=== PATIENT | male | born 1985 | race Hispanic/Latino ===

== ENCOUNTER 2024-10-17 20:32 | Emergency (ER) | payer BC, SELFPAY ==
[2024-10-17 20:46] VITALS: BP 194/113
[2024-10-17 20:48] VITALS: BP 176/101
[2024-10-17 21:06] LABS: % Basophils 0.8 % (0-2); % Eosinophils 3.6 % (0-6); % Immature Granulocytes 0.2 % (0-0.5); % Lymphocytes 38.2 % (20.5-51.1); % Monocytes 6.7 % (1.7-9.3); % Neutrophils 50.5 % (42.2-75.2); Absolute Basophils 0.1 10^3/uL (0-0.2); Absolute Eosinophils 0.3 10^3/uL (0-0.7); Absolute Lymphocytes 3.2 10^3/uL (1.2-3.4); Absolute Monocytes 0.6 10^3/uL (0.1-0.6); Absolute Neutrophils 4.3 10^3/uL (1.4-6.5); Hematocrit 41.3 % (39.0-52.0); Mean Corp Hgb Conc. 33.9 g/dL (33.0-37.0); Mean Corpuscular Hgb 29.7 pg (27.0-31.0); Mean Corpuscular Volume 87.5 fL (80.0-94.0); Mean Platelet Volume 9.2 fL (7.4-10.4); Nucleated Red Blood Cells % 0 % (-); Platelet Count 294 10^3/uL (130-400); Red Blood Cell Count 4.72 10^6/uL (4.70-6.10); Red Cell Dist. Width 13.3 % (11.5-14.5); White Blood Cell Count 8.5 10^3/uL (4.8-10.8)
[2024-10-17 21:23] LABS: ALT (SGPT) 30 U/L (0-50); AST (SGOT) 32 U/L (17-59); Albumin 4.7 g/dl (3.5-5.0); Alkaline Phosphatase 63 U/L (38-126); Blood Urea Nitrogen 13 mg/dl (9-20); Calcium 9.7 mg/dl (8.4-10.2); Carbon Dioxide 25 mmol/L (22-30); Chloride 105 mmol/L (98-107); Glucose 114 mg/dl (70-99); Potassium 4.6 mmol/L (3.5-5.1); Sodium 139 mmol/L (135-145); Total Bilirubin 0.8 mg/dl (0.2-1.3); eGFR > 60.00
[2024-10-17 21:29] LABS: Troponin I < 0.012 ng/ml
[2024-10-17 22:49] VITALS: BP 172/97
[2024-10-17 23:00] VITALS: BP 165/86
--- NOTE | 2024-10-17 23:19 | ED.GENMED ---
History of Present Illness
General
Chief Complaint: Numbness
Source: patient
Exam Limitations: none
Time Seen by Provider: 10/17/24 23:00
Nursing documentation reviewed up to this point in time: agreed with
History of Present Illness
History of Present Illness:
This is a 39-year-old gentleman who has no reported past medical history but admits to neglecting his health care for quite some time.
Over the past several days to perhaps a week he complains of some left-sided paresthesias, primarily left hand, palmar surface involving his thumb to long digit. He also has had some intermittent mild paresthesia left lateral thigh. He has had no
weakness, no clumsiness, no headache. He has noticed intermittent brief dizziness more so when walking to work which he does so on a daily basis. Dizziness described as a sense of mild lightheadedness,, perhaps brief sense of movement but no
difficulty with ambulation, no falls, not associated with nausea nor palpitations, no chest pain nor shortness of breath. He admits to mild intermittent nasal congestion, occasional sneezing, rare dry cough and believes these are all related to
seasonal allergies.
He has had intermittent pulsatile tinnitus in his left ear over the past week.
He does admit to moderate stress over the past 2 to 3 weeks, moderate family stress. He resides at home with his fianc�e.
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
He denies alcohol or drug use, denies smoking.
He takes no medicines on a daily basis.
Family history notable for his father having a stroke at age 46.
Patient currently does not have a PCP. He does have healthcare coverage.
Past History
Past History
ED Past Medical History: None
ED Past Surgical History: None
Social History
Tobacco: Non-smoker
Alcohol: None
Drug: None
Personal: Single (Resides with his fianc�e)
Living: with family (Resides with his fianc�e)
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
Family History
Family History: Hypertension and Other (Father had a stroke at age 46)
Phy Exam
Physical Exam
Physical Exam:
GENERAL: 39-year-old overweight gentleman appears his stated age, bright and alert, easily communicative, appears very mildly anxious/apprehensive but otherwise in no acute distress. Noted to be moderately hypertensive. Afebrile. Oral temperature
98.6 �F upon recheck.
EYE: pupils equal and reactive. Extraocular muscles intact. Minimal left lateral gaze nystagmus. Test of skew is negative. Negative head impulse test. Anicteric
NECK: Supple, nontender, no meningismus, no significant adenopathy.
ENT: posterior pharynx is clear, oral mucosa is moist. TM clear b/l, nares have moderately boggy pale blue turbinates without rhinorrhea.
CARDIAC: Regular rate and rhythm. no murmur.
LUNGS: Clear breath sounds bilaterally, no acute respiratory distress, no wheezes/rales/rhonchi
ABDOMEN: Soft, nondistended, without focal tenderness, normoactive BS.
NEUROLOGICAL: Alert and oriented x3, cranial nerves II through XII grossly intact, motor strength is 5/5 bilaterally. Gross sensation is intact bilaterally. No focal neuro deficits. Gait is gonzalez and steady. NIH stroke scale of 0.
SKIN: Warm and dry, normal color, skin intact. Rosacea type facial rash.
MUSCULOSKELETAL: No C/C/E. peripheral pulses are full and equal b/l. No palpable tenderness.
PSYCH: Normal and appropriate interaction.
Course
Orders/Labs/Results
Orders:
Orders
10/17/24 20:49
Electrocardiogram (*1) Urgent
Reason for Study: Chest Pain
EKG- Treatment ONCE
10/17/24 21:00
Complete Blood Count/With Diff Urgent
Comprehensive Metabolic Panel Urgent
TSH Reflex To Free T4 Urgent
Comment: ADD ON
Troponin I Urgent
10/17/24 23:14
CT Head W/o Iv Contrast Urgent
Comment:
Reason For Exam: left sided paresthesia x several days; HTN
10/17/24 23:15
CR Chest - 2 Views Urgent
Comment:
Reason For Exam: HTN, occas cough, paresthesia L side
10/17/24 23:16
Metoprolol [Lopressor] 5 mg IV NOW STA
10/17/24 23:19
Add On- LAB Urgent
Tests Added?: TSH w reflex to free T-4
Abnormal Lab Results
10/17/24
21:00
Glucose 114 H mg/dl
(70-99)
10/17/24 21:00
10/17/24 21:00
Vital Signs
Initial and Last Documented VS:
Initial Vital Signs
Temp Pulse Resp BP Pulse Ox
99.3 F 93 16 194/113 100
10/17/24 20:46 10/17/24 20:46 10/17/24 20:46 10/17/24 20:46 10/17/24 20:46
Last Documented Vital Signs
Temp Pulse Resp BP Pulse Ox
99.3 F 89 14 143/89 98
10/17/24 20:46 10/18/24 00:15 10/18/24 00:15 10/18/24 00:00 10/18/24 00:15
MDM/Problems Addressed
Differential Diagnosis Includes:
Concern for peripheral neuropathy such as carpal tunnel syndrome, meralgia paresthetica, other consideration is CVA.
Concern for benign paroxysmal positional vertigo versus central vertigo.
Currently asymptomatic. No focal neurodeficits.
Mild allergic rhinitis noted on exam which may be aggravating symptoms as well.
Patient is noted to be significantly hypertensive with initial blood pressure 194/113. Has currently improved to 165/86.
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
EKG is unremarkable, no evidence of ACS, no evidence of LVH nor strain pattern on EKG.
Labs are unremarkable, normal renal function, normal CBC, negative troponin. Will add TSH, concern for potential thyroid disorder.
Will check CT of the head as well as chest x-ray.
Given IV dose of metoprolol for hypertension. Beta-kameron may also aid in anxiety symptoms.
I highly suspect patient has hypertension, perhaps longstanding hypertension.
*Radiology
Radiology exam reviewed: preliminary read by ED provider (Chest x-ray is unremarkable. Normal heart size.) and radiology read reviewed (CT of the head is unremarkable.)
*Pulse Oximetry
Patient hypoxic: no
*EKG
Interpreted by ED Provider?: Yes
Interpretation: normal
Comparison EKG: no comparison EKG present
Rate: normal
Rhythm: sinus
[place]: normal axis
Interval: normal interval
QRS Pattern: normal QRS
Ischemia: no ischemia
*Cargo Surveyor Interpretation
Rate: normal
Interpretation: normal
Rhythm: sinus
*Critical Care Note
Total Time (30-74mins, 75-104mins- exclusive of procedures): Not Applicable
Update Note
Update Note:
00:40
Patient feeling improved, resting comfortably.
No return of paresthesias. No dizziness since arrival to the ED.
He continues to have no focal neurodeficits.
After 1 IV dose of Lopressor blood pressure has improved to 132/90.
CT of the head is unremarkable.
Chest x-ray is unremarkable.
Will discharge to home with prescription for low-dose metoprolol succinate to be started once daily.
Recommend prompt follow-up with PCP and patient has been referred to our family practice residency clinic.
Strict return precautions discussed.
ED Attending Note
-
Portions of this chart may have been created with voice recognition software.� Occasional wrong word or��sound alike� substitutions may have occurred due to the inherent limitations of voice recognition software.
Discharge Plan
Departure
Patient Disposition: Home (Routine Discharge)
Date of Disposition: 10/18/24
Time of Disposition: 00:45
Patient with high blood pressure during this ER visit?: Yes
Condition: Good
Discharge Problem:
Paresthesia of left upper and lower extremity, Essential (primary) hypertension
Instructions: High blood pressure in adults, Controlling your blood pressure through lifestyle, Paresthesia (DC)
Prescriptions:
New
metoprolol succinate 25 mg tablet extended release 24 hr
25 mg PO DAILY Qty: 30 0RF
Referrals:
[facility] [Provider Group] - Call in 1-3 days for appt
NONE,* [Family Provider] -
Interventions
Interventions:
*Risk Screen - Suicide Last Done: 10/17/24 20:46
*General Assessment Last Done: 10/17/24 23:28
*Neglect/Abuse Screening Last Done: 10/17/24 20:46
*ED COVID-19 Vaccine History Last Done: 10/17/24 23:28
ED- Neurological Assessment Last Done: 10/17/24 23:28
Discharge Date and Time
Print Language: MALAGASY
[2024-10-17 23:28] VITALS: BMI 35.3
[2024-10-17] MEDS: LOPRESSOR 5 MG IV (23:36)
[2024-10-18] VITALS: BP 143/89
[2024-10-18 00:39] VITALS: BP 132/91
[2024-10-18 01:01] LABS: TSH Reflex To Free T4 0.44 uIU/ml (0.47-4.68)
[2024-10-18 01:31] LABS: Free T4 1.15 ng/dl (0.78-2.19)
== END 2024-10-18 00:56 | disposition home or self-care (01) ==
LOC: EMR 20:32
PROVIDERS: Emergency Medicine; EMERGENCY PHYSICIAN Emergency Medicine
DX: R20.0 Anesthesia of skin (principal); I10 Essential (primary) hypertension; Z79.899 Other long term (current) drug therapy; Z82.3 Family history of stroke; Z82.49 Family history of ischemic heart disease and other diseases of the circulatory system; Z86.73 Personal history of transient ischemic attack (TIA), and cerebral infarction without residual deficits
CPT/HCPCS: 99284; 96374; 70450; 71046; 80053; 84439; 84443; 84484; 85025; 93005